=== PATIENT | female | born 1955 | race Caucasian/White ===

== ENCOUNTER 2019-11-16 06:25 | Day surgery (SDC) | payer MEDICARE, BC, OTHER ==
[~2019-11-16 06:25] MED LIST: Lactated Ringers 1,000 ML IV SCH
[2019-11-16] MEDS ORDERED: Lactated Ringers 1,000 ML IV SCH (07:00)
[2019-11-16] MEDS ORDERED: Propofol 200 MG/20 ML SDV ONE (07:33)
[2019-11-16] MEDS ORDERED: fentaNYL 100 MCG/2 ML SDV ONE (07:33)
[2019-11-16] MEDS ORDERED: Ondansetron 4 MG/2 ML SDV ONE (07:34)
--- NOTE | 2019-11-16 15:02 | OR ---
PREOPERATIVE DIAGNOSIS: Screening colonoscopy. POSTOPERATIVE DIAGNOSIS: Colon polyps. PROCEDURE PERFORMED: Total flexible colonoscopy with biopsies. ANESTHESIA: MAC anesthesia. COMPLICATIONS: None. BLOOD LOSS: Minimal. FINDINGS: 1. Transverse colon polyp, 1 mm, cold forceps. 2. Splenic flexure polyp, 2 mm, cold forceps. 3. Sigmoid polyps x2, 1 to 2 mm, cold forceps. 4. Sigmoid diverticulosis. START TIME: 0835. CECUM TIME: 0839. STOP TIME: 0854. [place] CLASS PREP: 2. INDICATION FOR PROCEDURE: Ms. Bazzi is a 64-year-old female who is here for routine screening colonoscopy. Her last colonoscopy was 12 years ago and she reports no polyps. She denies family history of colon cancer and has had no changes in her bowel habits or bloody or dark black stools. DETAILS OF PROCEDURE: After informed consent was obtained, the patient was brought to the procedure room, placed in left lateral decubitus position. MAC anesthesia was induced by Anesthesia colleagues. The endoscope incorporated with an Endocuff device was introduced into the rectum and advanced all the way to the cecum. The appendiceal orifice and ileocecal valve were photographed. No pathology was noted except for what is mentioned in the finding section. The endoscope was fully withdrawn. The patient tolerated the procedure well, was awoken from MAC anesthesia by Anesthesia colleagues without incident. PATHOLOGY: A) Colon, transverse polyp Benign colonic mucosa with benign lymphoid aggregate B) Colon, splenic flexure polyp Benign colonic mucosa C) Colon, sigmoid polyps Tubular adenoma Recommended repeat colonoscopy in 5 years. RKM: 11/16/2019 08:59:19 MODL: 11/16/2019 14:33:29 /[id number] JAVED
--- NOTE | 2019-11-21 13:04 | LETTER ---
11/18/2019 RE: CHARU ALEX LIGHT : 1955 [place] [id number] [address] [place] [id number] Dear Gerardo Rowe: I am writing to you to inform you of the pathology results of your recent colonoscopy. You had 2 tubular adenomas. The tubular adenoma is a polyp which does not contain cancer, but can become cancer. This is why we removed them. You will need another screening colonoscopy in 5 years. Warmest regards,
== END 2019-11-16 10:10 | disposition home or self-care (01) ==
LOC: VM.SDS 06:25
PROVIDERS: ATTEND Student in an Organized Health Care Education/Training Program
DX: Z12.11 Encounter for screening for malignant neoplasm of colon (principal); D12.5 Benign neoplasm of sigmoid colon; K57.30 Diverticulosis of large intestine without perforation or abscess without bleeding; E78.00 Pure hypercholesterolemia, unspecified; F41.9 Anxiety disorder, unspecified; K21.9 Gastro-esophageal reflux disease without esophagitis; R73.9 Hyperglycemia, unspecified; I73.00 Raynaud's syndrome without gangrene; G89.29 Other chronic pain; M54.2 Cervicalgia; M79.675 Pain in left toe(s); M89.9 Disorder of bone, unspecified; E78.5 Hyperlipidemia, unspecified; Z11.59 Encounter for screening for other viral diseases; Z79.899 Other long term (current) drug therapy; Z88.2 Allergy status to sulfonamides; Z88.1 Allergy status to other antibiotic agents; Z98.890 Other specified postprocedural states
CPT/HCPCS: 00812; 45380; 88305; J2405; J2704; J3010; J7120; U0002

== ENCOUNTER 2021-08-17 10:21 | Emergency (ER) | payer MEDICARE, BC ==
[2021-08-17] MEDS ORDERED: Sodium Chloride 0.9% 1,000 ML IV SCH (12:00)
[2021-08-17 12:09] LABS: CHLORIDE,CL 103 mmol/L (98-107); SODIUM,NA 138 mmol/L (136-145)
[2021-08-17 12:14] LABS: ANION GAP 13.5 mmol/L (5-15)
[2021-08-17] MEDS ORDERED: Iopamidol 612 MG/ML 100 ML Bottle IVPUSH ONE (12:45)
[2021-08-17] MEDS ORDERED: Iopamidol 612 MG/ML 50 ML SDV IVPUSH ONE (14:36)
[2021-08-17] MEDS ORDERED: Vancomycin 125 MG Cap PO SCH (16:08)
== END 2021-08-17 16:35 | disposition home or self-care (01) ==
LOC: VM.ED 10:21
DX: K52.9 Noninfective gastroenteritis and colitis, unspecified (principal); E78.00 Pure hypercholesterolemia, unspecified; K21.9 Gastro-esophageal reflux disease without esophagitis; Z88.1 Allergy status to other antibiotic agents; Z88.2 Allergy status to sulfonamides
CPT/HCPCS: 36415; 74177; 80053; 85025; 86140; 87045; 87046; 87324; 87493; 99284; 99284-25; J7030; Q9967

== ENCOUNTER 2022-01-05 18:30 | Inpatient (IN) | payer MEDICARE, BC ==
[2022-01-05] MEDS ORDERED: Sodium Chloride 0.9% 10 ML Syringe FLUSH PRN (19:09)
[2022-01-05] MEDS ORDERED: Sodium Chloride 0.9% 1,000 ML IV SCH (19:15)
[2022-01-05 20:06] LABS: PTT,PARTIAL THROMBOPLSTIN TIME 26.3 SEC (20.5-30.9)
[2022-01-05 20:33] LABS: ANION GAP 15.3 mmol/L (5-15)
[2022-01-05 20:34] LABS: CORONAVIRUS COVID-19 NAA NEGATIVE (NEGATIVE); RESPIRATORY SYNCYTIAL VIR NAA NEGATIVE (NEGATIVE)
[2022-01-05] MEDS ORDERED: Iopamidol 612 MG/ML 100 ML Bottle IVPUSH ONE (20:55)
[2022-01-05] MEDS ORDERED: cefTRIAXone 2 GM Vial IVPUSH ONE (22:22)
[2022-01-05] MEDS ORDERED: Magnesium Sulfate/Water 4 GM in Premix Bag 1 BAG IV ONE (23:48)
[2022-01-06] MEDS ORDERED: atorvaSTATin 10 MG Tab PO ONE (00:05)
[2022-01-06] MEDS: NS + KCl 20mEq/L 1,000 ML IV SCH ×2 (02:00→15:28)
[2022-01-06] MEDS: Acetaminophen 325 MG Tab PO PRN ×2 (02:07→11:57)
[2022-01-06 08:33] LABS: ANION GAP 12.5 mmol/L (5-15)
[2022-01-06] MEDS ORDERED: tiZANidine 4 MG Tab PO PRN (08:38)
[2022-01-06] MEDS ORDERED: Omeprazole 20 MG Cap.CR PO PRN (08:38)
[2022-01-06] MEDS ORDERED: MAGNESIUM GLUCONATE 27 MG PO SCH (08:45)
[2022-01-06] MEDS ORDERED: ZINC PO SCH (09:00)
[2022-01-06] MEDS ORDERED: VIT C PO SCH (09:00)
[2022-01-06] MEDS ORDERED: CUPERIC PO SCH (09:00)
[2022-01-06] MEDS ORDERED: LUTEIN PO SCH (09:00)
[2022-01-06] MEDS ORDERED: [UNRECOGNIZED DRUG - OTHER] PO SCH (09:00)
[2022-01-06] MEDS ORDERED: Non-Formulary Medication 1 Each PO SCH (09:00)
[2022-01-06] MEDS: Lactobacillus Rhamnosus GG (Probiotic) Cap PO SCH (09:46)
[2022-01-06] MEDS: Multivitamins with Iron/Calcium/Folic Acid/Minerals Tab PO SCH (09:46)
[2022-01-06] MEDS: Ascorbic Acid 500 MG Tab PO SCH (09:46)
[2022-01-06] MEDS: Calcium Carbonate/Vitamin D3 1250 MG-5 MCG Tab PO SCH ×2 (09:46→20:01)
[2022-01-06] MEDS: Lidocaine 4% 1 each Patch TOP SCH (16:36)
[2022-01-06] MEDS ORDERED: cefTRIAXone 1 GM Vial IVPUSH SCH (20:00)
[2022-01-06] MEDS ORDERED: atorvaSTATin 10 MG Tab PO SCH (21:00)
[2022-01-07 07:01] LABS: ANION GAP 13.9 mmol/L (5-15)
[2022-01-07] MEDS ORDERED: Levofloxacin 500 MG Tab PO SCH (08:00)
[2022-01-07] MEDS: Calcium Carbonate/Vitamin D3 1250 MG-5 MCG Tab PO SCH (09:19)
[2022-01-07] MEDS: Multivitamins with Iron/Calcium/Folic Acid/Minerals Tab PO SCH (09:19)
[2022-01-07] MEDS: Lactobacillus Rhamnosus GG (Probiotic) Cap PO SCH (09:19)
[2022-01-07] MEDS: Ascorbic Acid 500 MG Tab PO SCH (09:19)
[2022-01-07] MEDS: Lidocaine 4% 1 each Patch TOP SCH (09:20)
== END 2022-01-07 09:55 | disposition home or self-care (01) | DRG 690 ==
LOC: VM.ED 18:30 → VM.MS 22:57 → UNDOADMIN 22:57 → VM.MS 23:48
PROVIDERS: ADMIT Physician Assistant; ATTEND Physician Assistant
DX: N12 Tubulo-interstitial nephritis, not specified as acute or chronic (principal); N10 Acute pyelonephritis; E11.9 Type 2 diabetes mellitus without complications; E78.00 Pure hypercholesterolemia, unspecified; I95.9 Hypotension, unspecified; E87.6 Hypokalemia; Z79.899 Other long term (current) drug therapy; Z87.19 Personal history of other diseases of the digestive system; E83.42 Hypomagnesemia; M54.9 Dorsalgia, unspecified; Z20.822 Contact with and (suspected) exposure to COVID-19; E78.2 Mixed hyperlipidemia; F41.1 Generalized anxiety disorder; K21.9 Gastro-esophageal reflux disease without esophagitis; Z88.2 Allergy status to sulfonamides; Z88.8 Allergy status to other drugs, medicaments and biological substances
CPT/HCPCS: 0241U; 36415; 74177; 80048; 80053; 81001; 83605; 83735; 84100; 84145; 85025; 85610; 85730; 86140; 87040; 87086; 96361; 96374; 99285-25; A9270-GY; J0696; J3475; J3480; J3490; J7030; Q9967

== ENCOUNTER 2022-11-18 13:35 | Emergency (ER) | payer MEDICARE, BC | END 2022-11-18 14:13 | disposition home or self-care (01) | LOC: VM.ED 13:35 | DX: S82.892S Other fracture of left lower leg, sequela (principal); K21.9 Gastro-esophageal reflux disease without esophagitis; E78.00 Pure hypercholesterolemia, unspecified; Z79.899 Other long term (current) drug therapy; Z88.1 Allergy status to other antibiotic agents; Z88.2 Allergy status to sulfonamides; Z88.8 Allergy status to other drugs, medicaments and biological substances | CPT/HCPCS: 99283 ==

== ENCOUNTER 2025-04-07 06:24 | Day surgery (SDC) | payer MEDICARE, BC ==
[2025-04-07] MEDS: Lactated Ringers 1,000 ML IV SCH (06:41)
[2025-04-07] MEDS ORDERED: fentaNYL 100 MCG/2 ML SDV ONE (07:44)
[2025-04-07] MEDS ORDERED: Propofol 200 MG/20 ML SDV ONE (07:44)
[2025-04-07] MEDS ORDERED: Ondansetron 4 MG/2 ML SDV ONE (07:50)
== END 2025-04-07 09:10 | disposition home or self-care (01) ==
LOC: VM.SDS 06:24
PROVIDERS: ATTEND Student in an Organized Health Care Education/Training Program
DX: Z12.11 Encounter for screening for malignant neoplasm of colon (principal); D12.5 Benign neoplasm of sigmoid colon; E11.9 Type 2 diabetes mellitus without complications; E78.00 Pure hypercholesterolemia, unspecified; Z79.84 Long term (current) use of oral hypoglycemic drugs; Z88.2 Allergy status to sulfonamides; Z88.8 Allergy status to other drugs, medicaments and biological substances; Z86.16 Personal history of COVID-19; Z86.0101 Personal history of adenomatous and serrated colon polyps; Z79.899 Other long term (current) drug therapy
CPT/HCPCS: 00811; 82947; 88305; 99100; J2405; J2704; J3010; J7120